=== PATIENT | female | born 1950 | race Caucasian/White ===

== ENCOUNTER → 2016-11-08 09:38 | Outpatient (CLI) | payer MEDICARE, BC | END | disposition home or self-care (01) | LOC: D.US 09:38 | DX: I12.9 Hypertensive chronic kidney disease with stage 1 through stage 4 chronic kidney disease, or unspecified chronic kidney disease (principal) ==

== ENCOUNTER → 2017-03-17 08:17 | Outpatient (CLI) | payer MEDICARE, BC | END | disposition home or self-care (01) | LOC: D.RAD 08:17 | DX: R13.10 Dysphagia, unspecified (principal) ==

== ENCOUNTER → 2017-04-03 14:36 | Outpatient (CLI) | payer MEDICARE, BC ==
[2017-04-03 16:01] LABS: HELICOBACTER PYLORI IGG NEGATIVE (NEGATIVE)
[2017-04-05 14:20] LABS: INTRINSIC FACTOR ANTIBODY 0.9 AU/mL (0.0-1.1)
[2017-04-05 18:09] LABS: ANTIPARIETAL CELL ANTIBODY 14.1 Units (0.0-20.0)
== END | disposition home or self-care (01) ==
LOC: D.LAB 10:00
PROVIDERS: Internal Medicine Gastroenterology
DX: K20.9 Esophagitis, unspecified (principal); K29.70 Gastritis, unspecified, without bleeding